=== PATIENT | female | born 1940 | race Caucasian/White ===

== ENCOUNTER 2016-12-09 11:40 | Observation (INO) ==
[2016-12-09 12:11] LABS: MANUAL DIFF NEEDED? NO
[2016-12-09 12:16] LABS: BASO% 0.2 % (0.0-0.8); EOS# 0.02 X1000 (0.0-0.7); EOS% 0.2 % (0.0-10.0); HEMATOCRIT 38.6 % (37.0-47.0); HEMOGLOBIN 12.9 g/dL (12.0-16.0); IMM GRAN# 0.02 X1000 (0.0-0.04); IMM GRAN% 0.2 % (0.0-0.5); LYMPH# 2.82 X1000 (1.2-3.4); LYMPH% 30.5 % (20.5-51.1); MCHC 33.4 g/dL (33-37); MCV 98.7 FL (81-99); MONO# 0.62 X1000 (0.11-0.59); MONO% 6.7 % (1.7-9.3); MPV 10.2 FL (7.4-10.4); NEUT% 62.2 % (42.2-75.2); PLT 205 X1000 (130-400); RBC 3.91 XMIL (4.2-5.4)
[2016-12-09 12:39] LABS: INR 1.02 (0.86-1.15); PROTIME 13.7 Seconds (12.1-15.5)
--- NOTE | 2016-12-09 12:39 | Diag Imaging Result Doc PS360 ---
EXAM: HEAD W/O CONTRAST TECHNIQUE: Dose reduction protocol was used. INDICATION: facial numbness COMPARISON: 09/21/2015 FINDINGS: There is suggestion of minimal low-attenuation in the periventricular white matter suggesting very mild microangiopathy, stable. There is no definite acute infarct given the limited sensitivity of CT versus MRI. There is no discrete intracranial mass, mass effect, or intracranial hemorrhage. The surrounding soft tissues and bony structures are essentially unremarkable. IMPRESSION: Stable minimal chronic white matter changes. No evidence of acute pathology by CT. Electronically signed by Pérez Solomon 12/09/2016 12:37 PM
[2016-12-09 12:40] LABS: AGAP 14; ALBUMIN 4.6 g/dL (3.5-5.0); ALKALINE PHOSPHATASE 85 U/L (32-104); BUN 12 mg/dL (8-22); CALCIUM 10.3 mg/dL (8.8-10.2); CHLORIDE 99 mmol/L (98-107); COSMO 277; GOT 30 U/L (10-30); GPT 24 U/L (10-36); POTASSIUM 3.7 mmol/L (3.5-5.1); SODIUM 139 mmol/L (136-145); TCO2 27 mmol/L (25-35); TOTAL PROTEIN 7.8 g/dL (6.3-8.3)
--- NOTE | 2016-12-09 12:41 | Diag Imaging Result Doc PS360 ---
EXAM: CHEST-1 VIEW INDICATION: facial numbness TECHNIQUE: One view COMPARISON: 09/19/2015 FINDINGS: There is evidence of prior granulomatous disease, stable. There is stable mild biapical chronic pleural thickening. The lungs are grossly clear, otherwise. There is no discrete pleural fluid collection or pneumothorax. The cardiomediastinal silhouette and central vasculature are grossly unremarkable. IMPRESSION: No evidence of acute pathology by plain radiograph. Electronically signed by Pérez Solomon 12/09/2016 12:38 PM
--- NOTE | 2016-12-09 13:07 | EKG Report ---
Test Performed on : 12/09/2016 1:03:42 PM Test Reason : facial numbness Blood Pressure : / mmHG Vent. Rate : 062 BPM Atrial Rate : 062 BPM P-R Int : 202 ms QRS Dur : 074 ms QT Int : 406 ms P-R-T Axes : 074 -65 075 degrees QTc Int : 412 ms Normal sinus rhythm. Left axis deviation Septal infarct , age undetermined Abnormal ECG When compared with ECG of 19-SEP-2015 14:10, premature atrial complexes. are no longer present Septal infarct is now present Unconfirmed Result
--- NOTE | 2016-12-09 13:33 | PROVIDER DOCUMENTATION ---
This chart was entered by Jumana Clifton Scribe, acting as scribe for Linden Lawler MD. HPI-Neurological Disorder - General Chief Complaint: Stroke-Like Symptoms Stated Complaint: facial numbness Time Seen by Provider: 12/09/16 12:03 Source: patient Allergies/Adverse Reactions: Patient Allergies Allergy/AdvReac Type Severity Reaction Status Date / Time levofloxacin [From Levaquin] Allergy RASH Verified 09/19/15 13:54 nitrofurantoin Allergy ANAPHYLAXIS Verified 09/19/15 13:54 macrocrystalline * [From Macrodantin] Home Medications: Home Medication List Medication Instructions Recorded Confirmed Last Taken Type Aspirin EC 81 mg PO DAILY #30 tablet 09/21/15 12/09/16 Rx Clopidogrel [Plavix] 75 mg PO DAILY #30 tablet 09/21/15 12/09/16 Rx - History of Present Illness-Neuro Nature of Presenting Problem: 76 yo F presents to the ER with complaint of L sided facial and arm numbness, onset 1 hr ago. States she had a stroke 15 months ago and her symptoms started like this but today they are not as bad as they were then. Denies any weakness or difficulty moving extremities, no facial droop or slurred speech noted. Onset/Duration: reports: 1 hour ago Character of Deficits: reports: altered sensation New weakness or altered sensation location:: reports: LUE, left facial Cognitive Baseline: alert, oriented x3 Gait Baseline: walks without assistance Associated Symptoms: denies: confusion, slurred speech, weakness Review of Systems - Adult - REVIEW OF SYSTEMS - ADULT Constitutional: denies: chills, fever Eyes: reports: no symptoms reported Ears, Nose, Mouth & Throat: reports: no symptoms reported Cardiovascular: denies: chest pain, palpitations Respiratory: denies: cough, shortness of breath Gastrointestinal: denies: diarrhea, nausea, vomiting Genitourinary: reports: no symptoms reported Musculoskeletal: denies: joint pain, joint swelling Integumentary: reports: no symptoms reported Neurological: reports: numbness. denies: dizziness/vertigo, slurred speech Psychiatric: reports: no symptoms reported Endocrine: reports: no symptoms reported Hematologic/Lymphatic: reports: no symptoms reported Allergic/Immunologic: reports: no symptoms reported All Other Systems: Reviewed and Negative Past History - Adult - PAST MEDICAL HISTORY-ADULT Review of Records: reports: Nursing Assessment Review, Medications Reviewed Musculoskeletal: reports: arthritis Neurological: reports: CVA, TIA - PRIOR SURGERIES/PROCEDURES Surgical/Procedure History: reports: colonoscopy, hysterectomy - IMMUNIZATION STATUS Childhood Immunizations: See Nurse Assessment Flu Vaccine: See Nurse Assessment - FAMILY HISTORY Family History: reviewed, not pertinent Physical Exam- Neurological - Physical Exam-Neuro Initial Vital Signs Reviewed: Yes General Appearance: alert, no apparent distress Eye Exam: bilateral eye: normal inspection, PERRL, EOMI HENMT: normocephalic/atraumatic, normal ENT inspection, TMs normal, pharynx normal Head Injury: no evidence of injury. 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: normal hearing, normal speech, PERRL Neurologic: grossly normal, no motor/sensory deficits Integumentary: normal color, warm/dry Psych/Mental Status: normal mood/affect, normal thought content, normal thought process, oriented x 3 Progress - PLAN OF CARE/RESULTS Progress/Plan/Lab Results: Vital Signs - 8 hr 12/09/16 11:43 Temperature 97.7 F Pulse Rate 77 Respiratory Rate 23 Blood Pressure 154/69 O2 Sat by Pulse Oximetry 100 Laboratory Results - last 24 hr 12/09/16 12/09/16 12/09/16 12:02 12:02 12:02 WBC 9.26 RBC 3.91 L Hgb 12.9 Hct 38.6 MCV 98.7 MCH 33.0 H MCHC 33.4 RDW Std Deviation 12.4 Plt Count 205 MPV 10.2 Immature Gran % (Auto) 0.2 Neut % (Auto) 62.2 Lymph % (Auto) 30.5 [place] % (Auto) 6.7 Eos % (Auto) 0.2 Baso % (Auto) 0.2 Immature Gran # (Auto) 0.02 Neut # (Auto) 5.76 Lymph # (Auto) 2.82 [place] # (Auto) 0.62 H Eos # (Auto) 0.02 Baso # (Auto) 0.02 PT INR APTT (Factor Assay) Sodium 139 Potassium 3.7 Chloride 99 Carbon Dioxide 27 Anion Gap 14 BUN 12 Creatinine 0.5 Estimated GFR/1.73 m2 > 60 BUN/Creatinine Ratio 24 Glucose 91 Calculated Osmolality 277 Calcium 10.3 H Total Bilirubin 1.30 H AST 30 ALT 24 Alkaline Phosphatase 85 Troponin T < 0.010 Total Protein 7.8 Albumin 4.6 Globulin 3.0 Albumin/Globulin Ratio 1.0 12/09/16 12:02 WBC RBC Hgb Hct MCV MCH MCHC RDW Std Deviation Plt Count MPV Immature Gran % (Auto) Neut % (Auto) Lymph % (Auto) [place] % (Auto) Eos % (Auto) Baso % (Auto) Immature Gran # (Auto) Neut # (Auto) Lymph # (Auto) [place] # (Auto) Eos # (Auto) Baso # (Auto) PT 13.7 INR 1.02 APTT (Factor Assay) 29.0 Sodium Potassium Chloride Carbon Dioxide Anion Gap BUN Creatinine Estimated GFR/1.73 m2 BUN/Creatinine Ratio Glucose Calculated Osmolality Calcium Total Bilirubin AST ALT Alkaline Phosphatase Troponin T Total Protein Albumin Globulin Albumin/Globulin Ratio Orders Category Date Time Status Cardiac Monitoring DIRECTED Care 12/09/16 11:55 Active Oxygen Therapy- ED Nursing DIRECTED Care 12/09/16 11:55 Active Saline Loc NOW Care 12/09/16 11:55 Active CHEST-1 VIEW [RAD] Stat Exams 12/09/16 11:55 Completed HEAD W/O CONTRAST [CT] Stat Exams 12/09/16 11:55 Completed CBC WITH ELECTRONIC DIFF [HEME] Stat Lab 12/09/16 12:02 Completed COMPREHENSIVE METABOLIC PANEL [CHEM] Stat Lab 12/09/16 12:02 Completed [address]IME WITH INR PL [COAG] Stat Lab 12/09/16 12:[address] [COAG] Stat Lab 12/09/16 12:02 Completed TROPONIN T Stat Lab 12/09/16 12:02 Completed EKG [EKG] Stat Ther 12/09/16 11:55 Draft Result Diagrams: 12/09/16 12:02 12/09/16 12:02 - REASSESSMENT Reassessment #1 Time Reassessed: 13:27 Status: improving (her numbness resolved as she completed all her tests.) - EKG 1 Time of EKG reading by physician:: 13:03 EKG Read and Signed by:: Linden Lawler EKG Interpretation (*Must complete 3 of following elements*): Abnormal (septal infarct) Rate: 62 Rhythm: normal sinus rhythm [place]: left QRS: normal [place] Interval: normal ST Wave: normal - XRAY 1 XRAY Study: Chest Impression: Normal (no evidence of acute pathology by plain radiograph. per radiologist) - CT/MRI 1 CT Study: Head Impression: Normal (Stable minimal chronic white matter changes. No evidence of acute pathology by CT. Per radiologist) - CONSULTS/PCP/HOSPITALIST Notification #1 *Consult/PCP/Hospitalist*: Dr Abbasi Time Discussed: 14:11 Consult Disposition: Admit (agrees to observe, all is fine right now) Departure - Departure Date of Disposition Decision: 12/09/16 Time of Disposition Decision: 14:12 DIAGNOSIS: TIA (transient ischemic attack) Qualifiers: Transient cerebral ischemia type: unspecified Qualified Code(s): G45.9 - Transient cerebral ischemic attack, unspecified Disposition: HOME 01 Certified Medical Emergency: Emergent Condition: Stable Additional Freetext Instructions: ED Follow Up Instructions: You have been treated by a care provider in the Emergency Department. These instructions are being provided to you so you can have an understanding of how to care for yourself upon discharge. Upon discharge from the Emergency Department, you are responsible for making arrangements for follow-up care by a physician of your choice. Take all prescribed medications as directed. Return to the Emergency Department immediately for any new or worsening symptoms. You may call the Physician Referral phone number at [phone] to obtain a list of Physicians who are taking new patients. Referrals and Follow-Ups: Pérez Orr MD [Primary Care Provider] - - Critical Care Note This patient required my direct & personal management of CC.: No - NIH Stroke Scale Level of Consciousness: 0-Alert LOC Questions (ask month and age): 0-Answers Both Correctly LOC Commands (ask to open & close eyes;make a fist, let go): 0-Obeys Both Correctly Best Gaze (horizontal eye movement): 0-Normal Visual (use finger movement, counting or visual threat): 0-No Visual Loss Facial Palsy (show teeth or raise eyebrows & close eyes tght: 0-Symmetrical Movement Motor Function-left arm: 0-Normal Motor Function-right arm: 0-Normal Motor Function-left le-Normal Motor Function-right le-Normal Limb Ataxia(byblni-hcgi-mykgfy, or heel to darnell): 0-No Ataxia Sensory(pin prick to face,arms,trunk,legs-compare side/side): 0-No Ataxia Best Language(name item/read sentence.Ex-Down to Earth): 0-No Aphasia Dysarthria(Pt read words or say words Ex.Mama,Tip-Top,Thanks: 0-Normal Articulation Extinction and Inattention: 0-Normal Modified Aaron Score Criteria: 0-no symptoms This chart was documented by the indicated scribe, (Jumana Clifton Scribe) and accurately reflects the services I performed and decisions made by me, Linden Lawler MD, as attested by the provider's signature.
[2016-12-09] MEDS ORDERED: ASPIRIN EC PO SCH (14:15)
--- NOTE | 2016-12-09 18:30 | HISTORY AND PHYSICAL ---
PRIMARY CARE PHYSICIAN: Pérez Orr MD. CHIEF COMPLAINT: Left-sided facial numbness and left arm numbness that began approximately 1 hour prior to arrival. HISTORY OF PRESENT ILLNESS: This is a 76-year-old, female who presents to [facility] ER with complaints of left-sided facial numbness , and arm numbness and tingling that began approximately 1 hour prior to arrival. She states that she was at [employer] and when she was heading home she began having that numbness and tingling in the left side of her face and arm. She had a history of TIA approximately 15 months ago. She also stated she began feeling a little dizzy so she came to the emergency room. Workup to this point has been negative. Neurologically she does not have any deficits. Her CT of the head showed stable minimal chronic white matter changes. No evidence of acute pathology by CT but she will be admitted for further evaluation and treatment. PAST MEDICAL HISTORY: Hypoglycemia and transient ischemic attack. PAST SURGICAL HISTORY: Hysterectomy. FAMILY HISTORY: Coronary artery disease in her mom, father and her 2 brothers. SOCIAL HISTORY: She currently lives alone. Denies any tobacco, alcohol, or illicit drug use. ALLERGIES: Levofloxacin and Macrodantin. HOME MEDICATIONS: Aspirin 81 mg p.o. daily and Plavix 75 mg p.o. daily. We will continue both of those. LABORATORY DATA: White blood cell count of 9.26, hemoglobin 12.9, hematocrit 38.6, platelets 205,000. PT and INR of 13.7 and 1.02. Sodium 139, potassium 3.7, chloride 99, CO2 27, BUN of 12, creatinine 0.5, glucose 99, troponin less than 0.010. Chest x-ray showed no evidence of an acute pathology by plain radiograph. EKG with normal sinus rhythm at 62. Head CT showed stable minimal chronic white matter changes. No evidence of acute pathology by CT. REVIEW OF SYSTEMS: She denied any fever, chills, blurred vision. She was positive for some dizziness, left-sided facial and left arm numbness/tingling. Denied any chest pain, coughing, shortness of breath, abdominal pain, constipation, diarrhea, burning or hurting with urination. PHYSICAL EXAMINATION: VITAL SIGNS: On arrival she had a temperature of 97.7 degrees, pulse 77, respirations 23, blood pressure 154/69, saturating 100% on room air. GENERAL: This is a 76-year-old, female who is sitting up in bed, answers questions appropriately. HEENT: Normocephalic and atraumatic. Pupils are equal, round, reactive to light. Extraocular movements are intact. Oropharynx and nares are clear. NECK: Supple. LUNGS: Clear to auscultation bilaterally with equal lung expansion and chest wall movement. HEART: Regular rate and rhythm. No murmurs, rubs, or gallops. ABDOMEN: Soft, nontender, nondistended. Bowel sounds are present x4 quadrants. EXTREMITIES: There is no clubbing, cyanosis, or edema. NEUROLOGICAL: Cranial nerves 2-12 appear grossly intact. ASSESSMENT: 1. Transient ischemic attack. We will rule out for cerebrovascular accident. 2. Dizziness. 3. Hypertension. PLAN: She will be admitted to the medical unit at [place] and placed on telemetry. We will continue her home medications. We will check an echocardiogram and carotid ultrasound in the a.m. We will check an MRI of the brain without contrast today and follow. Dictated by NOAH Garcia for Nolberto Abbasi MD cc: MD Tory Villegas CRNP Alexis R. Penot, MD pt examined, agree with above APENOT MTDD
[2016-12-09] MEDS ORDERED: TYLENOL PO PRN (18:57)
[2016-12-09] MEDS ORDERED: ZOFRAN IV PRN (18:57)
[2016-12-09] MEDS ORDERED: NS 1,000 ML IV SCH (19:00)
[2016-12-09 21:53] LABS: BILIRUBIN URINE NEGATIVE (NEGATIVE); CLARITY CLEAR (CLEAR); COLOR YELLOW; GLUCOSE URINE NEGATIVE (NEGATIVE); SP GRAVITY URINE 1.005; URINE CULTURE PL NEEDED? NO; URINE SOURCE CLEAN CATCH
[2016-12-09 21:54] LABS: BLOOD URINE NEGATIVE (NEGATIVE); LEUKOCYTES URINE NEGATIVE (NEGATIVE); NITRITE URINE NEGATIVE (NEGATIVE); PROTEIN URINE NEGATIVE (NEGATIVE); UROBILINOGEN URINE NORMAL
[2016-12-09 21:56] LABS: URINE EPITHELIAL CELLS <10 /HPF (<10); URINE RBC <10 /HPF (<10); URINE WBC <10 /HPF (<10)
[2016-12-10 06:02] LABS: HEMATOCRIT 39.5 % (37.0-47.0); HEMOGLOBIN 12.7 g/dL (12.0-16.0); MCH 32.1 PG (27-31); MCHC 32.2 g/dL (33-37); MCV 99.7 FL (81-99); MPV 10.2 FL (7.4-10.4); RBC 3.96 XMIL (4.2-5.4)
[2016-12-10 06:45] LABS: AGAP 9; ALBUMIN 4.4 g/dL (3.5-5.0); ALKALINE PHOSPHATASE 81 U/L (32-104); BUN 12 mg/dL (8-22); CALCIUM 9.1 mg/dL (8.8-10.2); CHLORIDE 103 mmol/L (98-107); COSMO 280; DIRECT BILIRUBIN < 0.20 mg/dL (0.00-0.20); GOT 24 U/L (10-30); GPT 20 U/L (10-36); POTASSIUM 4.1 mmol/L (3.5-5.1); SODIUM 141 mmol/L (136-145); TCO2 29 mmol/L (25-35); TOTAL PROTEIN 7.2 g/dL (6.3-8.3)
[2016-12-10] MEDS ORDERED: NS 1,000 ML IV SCH (07:44)
[2016-12-10] MEDS ORDERED: PLAVIX PO SCH (09:00)
[2016-12-10] MEDS ORDERED: ASPIRIN EC PO SCH (09:00)
--- NOTE | 2016-12-10 09:44 | Extremity Venous Study ---
EXAM: Carotid Ultrasound INDICATION: tia TECHNIQUE: COMPARISON: 09/20/2015 FINDINGS: Right: No significant atherosclerotic plaque is identified in the right carotid system. The peak systolic velocity measures 106, 84, 66, 66, 78, 108, and 55 cm/s at the right subclavian artery, CCA, bifurcation, proximal ICA, mid ICA, distal ICA, and ECA, respectively. There is antegrade flow in the vertebral artery. The carotid ratio is 1.28. Left: There is no evidence of significant atherosclerotic plaque involving the left carotid system. Peak systolic velocity is 106, 96, 74, 67, 67, 81, and 58 cm/s at the left subclavian artery, CCA, bifurcation, proximal ICA, mid ICA, distal ICA, and ECA, respectively. There is antegrade flow in the vertebral artery. The carotid ratio is 0.85. IMPRESSION: No evidence of hemodynamically significant carotid stenosis. Electronically signed by Pérez Solomon 12/10/2016 9:41 AM
[2016-12-10 11:50] VITALS: BP 131/53
--- NOTE | 2016-12-10 11:56 | Diag Imaging Result Doc PS360 ---
EXAM: MRI BRAIN W/O CONTRAST INDICATION: tIA VS CVA COMPARISON: CT head dated 12/09/2016. No prior MRIs available for comparison. FINDINGS: There is no evidence of acute infarct. There is very minimal patchy T2/FLAIR hyperintensity in the periventricular and subcortical white matter suggesting extremely mild microangiopathy. There is no discrete intracranial mass, mass effect, or intracranial hemorrhage. The surrounding soft tissues and bony structures are essentially unremarkable. IMPRESSION: Suggestion of extremely mild white matter microangiopathy, especially for age. Essentially normal MRI brain, otherwise. Electronically signed by Pérez Solomon 12/10/2016 11:54 AM
--- NOTE | 2016-12-10 19:48 | ECHO REPORT ---
ORDER DATE: 12/10/2016 MEASUREMENTS: Left ventricular end-diastolic diameter 3.5, end-systolic diameter 2.5, septal thickness 1.0, posterior wall thickness 0.8, left atrium 2.2, aortic root 2.8. SUMMARY: 1. Adequate quality study. 2. Aortic valve is trileaflet and opens normally on 2-dimensional images. There is trace aortic regurgitation. Mitral, tricuspid, and pulmonic valves are without structural abnormality with trace mitral regurgitation and mild tricuspid regurgitation. The estimated systolic PA pressure by Doppler is 45 mmHg. The aortic root is normal in size. 3. Normal left ventricular dimensions demonstrated. Estimated left ejection fraction appears to be at least 65%. No regional wall motion abnormality is evident. Doppler suggests normal left ventricular diastolic function. Left atrium, right atrium, and right ventricle are normal in size with normal right ventricular systolic function. 4. No pericardial effusion. 5. Appearance of inferior vena cava suggests normal central venous pressure. cc: MD Tory Torres CRNP
--- NOTE | 2016-12-10 23:51 | DISCHARGE SUMMARY ---
ADMISSION DATE: 12/09/2016 DISCHARGE DATE: 12/10/2016 DATE OF ADMISSION: 12/09/2016. DATE OF DISCHARGE: 12/10/2016. PRIMARY CARE PHYSICIAN: Dr. Orr. ADMISSION DIAGNOSES: 1. TIA, rule out for CVA. 2. Dizziness. 3. Hypertension. DISCHARGE DIAGNOSES: 1. TIA, CVA ruled out. 2. Dizziness, resolved. 3. Hypertension, stable. SUMMARY OF FINDINGS: This is a 76-year-old, female who presented to the emergency room with complaints of left-sided facial numbness and arm numbness that began approximately an hour prior to arrival. States she has a history of a TIA that occurred approximately 15 months ago. She began to feel a little dizzy also, so she came to the emergency room. Once she arrived, her symptoms had resolved but we admitted to rule out, so we did a MRI of the brain today and it showed extremely mild white matter microangiopathy, especially for age. Essentially normal MRI brain otherwise. We did a bilateral carotid Doppler study that showed no evidence of hemodynamically significant carotid stenosis and so it is felt that she can safely be discharged home today. DISCHARGE MEDICATIONS: She will continue her home medications of: 1. Aspirin 81 mg p.o. daily. 2. Plavix 75 mg p.o. daily. FOLLOWUP: With Dr. Orr 1-2 weeks and call his office for an appointment. All discharge instructions have been reviewed with the patient. TIME SPENT ON DISCHARGE: 35 minutes. This is NOAH Garcia, dictating for Dr. Upton. Dictated by NOAH Garcia for Bhavik Sutherland MD cc: NOAH Garcia MD John V. Irle, MD
== END 2016-12-10 16:11 | disposition home or self-care (01) ==
LOC: SUPCPDRO → P.ED 11:40 → P.MEDSURG 14:14 → OPS 14:14 → INTOOBSV 14:18 → OBSVTOIN 14:18 → P.MEDSURG 14:18 → UNDODISIN 12-10 16:11
PROVIDERS: ADMIT Emergency Medicine; ATTEND Emergency Medicine